=== PATIENT | male | born 2000 | race Two or more races ===

== ENCOUNTER 2023-04-17 01:14 | Emergency (ER) | payer MEDICAID, OTHER ==
[~2023-04-17] VITALS: Ht 167.6 cm; Wt 54.5 kg
[2023-04-17 01:58] LABS: Basophils # (auto) 0 10 ^3/uL (0-0.2); Basophils % (auto) 0.5 % (0.0-2.0); Eosinophils # (auto) 0 10 ^3/uL (0-0.8); Eosinophils % (auto) 0.2 % (0.0-7.0); Hematocrit 44.2 % (41.0-53.0); Hemoglobin 15.3 g/dL (13.5-17.5); Lymphocytes # (auto) 3.5 10 ^3/uL (0.4-5.4); Lymphocytes % (auto) 41.9 % (10.0-50.0); Mean Corpuscular Hemoglobin 32.8 pg (28.0-32.0); Mean Corpuscular Hgb Conc. 34.7 g/dL (32.0-36.0); Mean Corpuscular Volume 94.5 fL (80.0-100.0); Monocytes # (auto) 0.8 10 ^3/uL (0-1.3); Monocytes % (auto) 9.1 % (0.0-12.0); Neutrophils % (auto) 48.3 % (37.0-80.0); Nucleated Red Blood Cells % 0.1 %; Red Blood Cells 4.68 10^6/uL (4.5-5.90); Red Cell Distribution Width 13.8 % (11.8-14.3); White Blood Cell 8.4 10^3/uL (4.4-10.8)
[2023-04-17 02:14] LABS: INR 1.06 (0.9-1.15); Partial Thromboplastin Time 28.7 SEC (24.5-34.5); Prothrombin Time 11.1 sec (9.3-11.8)
[2023-04-17 02:19] LABS: Alanine Aminotransferase 23 U/L (7-40); Albumin 4.7 g/dL (3.2-4.8); Alkaline Phosphatase 52 U/L (46-116); Anion Gap 6 (5-15); Aspartate Aminotransferase 27 U/L (13-40); BUN/Creatinine Ratio 6.6 (10.0-20.0); Blood Urea Nitrogen 7 mg/dL (9-23); Calcium 9.4 mg/dL (8.7-10.4); Carbon Dioxide 28 mmol/L (20-30); Chloride 104 mmol/L (98-107); Glucose 94 mg/dL (74-106); Potassium 3.9 mmol/L (3.5-5.1); Sodium 138 mmol/L (136-145); Total Protein 7.3 g/dL (5.7-8.2)
[2023-04-17 03:46] LABS: Urine Bacteria NONE SEEN /hpf (None Seen); Urine Blood Negative /uL (Negative); Urine Clarity Clear (Clear); Urine Color Yellow (Yellow); Urine Mucus FEW (None Seen); Urine Protein, UAD Negative (Negative); Urine Urobilinogen Normal (Negative); Urine WBC 1 /hpf (0 - 3); Urine pH 6.5 (5.0-8.0)
[2023-04-17] MEDS: KETOROLAC TROMETH 60MG/2ML VIAL IM ONE (03:55)
[2023-04-17 03:58] VITALS: BP 107/73; PULSE 75; RESP 17; TEMP 98.1; O2SAT 99
[2023-04-17] MEDS ORDERED: ACET-1304 PO (04:39)
[2023-04-17] MEDS ORDERED: IBUP-1456 PO (04:39)
== END 2023-04-17 05:27 | disposition home or self-care (01) ==
LOC: ER 01:14
DX: K40.90 Unilateral inguinal hernia, without obstruction or gangrene, not specified as recurrent (principal); Z79.899 Other long term (current) drug therapy
CPT/HCPCS: 36415; 74176; 80053; 81001; 85025; 85610; 85730; 96372; 99285; J1885

== ENCOUNTER 2024-04-29 20:32 | Emergency (ER) | payer MEDICAID ==
[~2024-04-29] VITALS: Ht 167.6 cm; Wt 55.5 kg
[~2024-04-29 20:32] MED LIST: ACET-1304 PO; IBUP-1456 PO
--- NOTE | 2024-04-29 21:20 | ED.PDOC ---
GI ASSESSMENT HPI Comments 23y M who presents to the ED for chief complaint of abdominal pain. Pt states he has inguinal hernia on the RLQ for the past year. Patient states he has been I am able to follow up with his primary care provider for surgical intervention due to insurance purposes. Pt states he has been able to put it back into the abdominal cavity in the past but states today, he started to have increasing pain when attempting to place it back. Pt rates the pain 8/10, constant, non- radiating, with associated exacerbation of pain with movement and no relieving factors. Pt otherwise has noted stable vitals in the ED. Pt otherwise denies nausea, vomiting, diarrhea, fever, cough or chills. Pt denies any other symptoms at this time. Chief Complaint: Abdominal Pain Time Seen by MD: 21:17 Primary Care Provider: Juan Jose Palacios Reviewed Notes: Nurses Notes, Medications Allergies: Coded Allergies: NO KNOWN ALLERGIES (Unverified , 04/17/23) Home Meds Active Scripts Acetaminophen (Tylenol Extra Strength) 500 Mg Tab, 1000 MG PO Q6HP PRN, #30 TAB Prov:DILAN EL MD 04/17/23 Ibuprofen (Ibuprofen) 800 Mg Tab, 1 TAB PO Q8HP PRN, #30 TAB 1 Refill Prov:DILAN EL MD 04/17/23 Information Source: Patient Mode of Arrival: Ambulatory Brought in by: self Timing: Hours Prehospital treatment: Pain Meds Quality: Aching, Cramping Severity: Moderate Recent: Other (History of right-sided inguinal hernia) Recent Hx of: Other ( inguinal hernia) Pain Location: RLQ Past Medical History PAST MEDICAL HISTORY: Denies Past Medical History (Other): history of right-sided inguinal hernia Surgical History: Denies all surgeries Family History Family History: Unknown Social History Smoker: Non-Smoker Alcohol: Occasionally Drugs: Denies Drug Use Lives In: Home Constitutional: denies: chills, diaphoresis, fatigue, fever, malaise, sweats, weakness, others EENTM: denies: blurred vision, double vision, ear bleeding, ear discharge, ear drainage, ear pain, ear ringing, eye pain, eye redness, hearing loss, mouth pain, mouth swelling, nasal discharge, nose bleeding, nose congestion, nose pain, photophobia, tearing, throat pain, throat swelling, voice changes, others Respiratory: denies: cough, hemoptysis, orthopnea, SOB at rest, shortness of breath, SOB with excertion, stridor, wheezing, others Cardiovascular: denies: chest pain, dizzy spells, diaphoresis, Dyspnea on exertion, edema, irregular heart beat, left arm pain, lightheadedness, palpitations, PND, syncope, others Gastrointestinal: reports: abdominal pain; denies: abdomen distended, blood streaked bowels, constipated, diarrhea, dysphagia, difficulty swallowing, hematemesis, melena, nausea, poor appetite, poor fluid intake, rectal bleeding, rectal pain, vomiting, others Genitourinary: denies: burning, dysuria, flank pain, frequency, hematuria, incontinence, penile discharge, penile sore, pain, testicle pain, testicle swelling, urgency, others Neurological: denies: dizziness, fainting, headache, left sided numbness, left sided weakness, numbness, paresthesia, pre-existing deficit, right sided numbness, right sided weakness, seizure, speech problems, tingling, tremors, weakness, others Musculoskeletal: denies: back pain, gout, joint pain, joint swelling, muscle pain, muscle stiffness, neck pain, others Integumetry: denies: bruises, change in color, change in hair/nails, dryness, laceration, lesions, lumps, rash, wounds, others Allergic/Immunocompromised: denies: Difficulty Healing, Frequent Infections, Hives, Itching, others Hematologic/Lymphatic: denies: anemia, blood clots, easy bleeding, easy bruising, swollen glands, others Endocrine: denies: excessive hunger, excessive sweating, excessive thirst, excessive urination, flushing, intolerance to cold, intolerance to heat, unexplained weight gain, unexplained weight loss, others Psychiatric: denies: anxiety, bipolar disorder, depression, hopeless, panic disorder, schizophrenia, sleepless, suicidal, others All Other Systems: Reviewed and Negative Physical Exam General Appearance: Moderate Distress ( due to right-sided inguinal discomfort), Normal HEENT: Normal ENT Inspection, Pharynx Normal, TMs Normal Neck: Full Range of Motion, Non-Tender, Normal, Normal Inspection Respiratory: Chest Non-Tender, Lungs Clear, No Accessory Muscle Use, No Respi ratory Distress, Normal Breath Sounds Cardiovascular: No Edema, No JVD, No Murmur, No Gallop, Normal Peripheral Pulses, Regular Rate/Rhythm Breast Exam: Deferred Gastrointestinal: No Organomegaly, Non Tender, No Pulsatile Mass, Normal Bowel Sounds, Soft Genitalia: Deferred Pelvic: Other ( patient presents with a bulging right-sided inguinal hernia. Unable to reduce hernia at time of evaluation. No ecchymosis noted.) Rectal: Deferred Extremities: No calf tenderness, Normal capillary refill, Normal inspection, Normal range of motion, Non-tender, No pedal edema Neurologic: Alert, No Motor Deficits, Normal Affect, Normal Mood, No Sensory Deficits Cerebellar Function: Normal Reflexes: Normal Skin: Dry, Normal Color, Warm Lymphatic: No Adenopathy Was a procedure done? Was a procedure done?: No GI differential Dx Differential Diagnosis: Hernia, Other ( Incarcerated hernia, strangulated hernia) X-Ray, Labs, Meds, VS Vital Signs Date Time Temp Pulse Resp B/P (MAP) Pulse Ox O2 Delivery O2 Flow Rate FiO2 04/29/24 21:10 98.7 72 16 107/69 (82) 100 Current Medications Medications (Trade) Dose Ordered Sig/Jason Route Start Time Stop Time Status Last Admin Ketorolac Tromethamine (Toradol Injection) 30 mg ONCE ONCE IM 04/29/24 21:15 04/29/24 21:16 DC 04/29/24 22:45 Acetaminophen/ Hydrocodone Bitart (Davis 10/325MG Tab) 1 tab ONCE ONCE PO 04/29/24 21:15 04/29/24 21:16 DC 04/29/24 22:44 X-Ray, Labs, Meds, VS Comment All studies performed the ED were evaluated by me personally. Imaging studies of the right-sided inguinal hernia were unremarkable for any incarceration or strangulation. infectious waste technician advised me that while she was performing the ultrasound, the inguinal hernia reduced completely. Advised patient to utilize medication as needed and follow up with primary care provider for discussions related to surgical intervention to repair his right-sided inguinal hernia. Time of 1ST Reevaluation: 23:02 Reevaluation 1ST: Improved Consultation: PCP, Surgery Patient Education/Counseling: Diagnosis, Treatment Family Education/Counseling: Diagnosis, Treatment, No Family Present Departure 1 Departure Time of Disposition: 23:03 Impression: Primary Impression: Inguinal hernia of right side without obstruction or gangrene Disposition: HOME / SELF CARE / HOMELESS Condition: Stable Additional Instructions: Advised patient utilize pain medication as needed for symptomatic relief in additionally, patient needs to follow up with his primary care provider for conversations related to surgical intervention to repair his hernia concerns. e-Prescriptions Tramadol Hcl (Tramadol Hcl) 50 Mg Tab 50 MG PO Q8HP PRN, #10 TAB Prov: SHIKHA PENA PAC 04/29/24 Ibuprofen Micronized (Ibuprofen) 800 Mg Tab 800 MG PO Q8HP PRN, #20 TAB Prov: SHIKHA PENA PAC 04/29/24 Discharged With: Self, Friend Critical Care Note Critical Care Time?: No Stability Stability form required: No Heart Score Heart Score: Heart Score Response (Comments) Value History N/A 0 EKG N/A 0 Age N/A 0 Risk Factors N/A 0 Troponin N/A 0 Total 0 I personally scribed for SHIKHA PENA PAC ([email or web address]) on 04/29/24 at 21:20. Electronically submitted by Shai Gonzalez ([email or web address]). I personally scribed for SHIKHA PENA PAC ([email or web address]) on 04/29/24 at 21:30. Electronically submitted by Shai Gonzalez ([email or web address]). SHIKHA PENA PAC Apr 29, 2024 21:20
--- NOTE | 2024-04-29 22:13 | DVH ---
INDICATION: Right-sided inguinal hernia TECHNIQUE: Multiple real-time grayscale transabdominal sonographic images along with color and duplex Doppler of the uterus and ovaries were obtained. COMPARISON: None FINDINGS: There is a 4.2 x 2.6 x 4.7 cm right inguinal hernia which does not extend entirely through the inguin al canal. This does correspond to a palpable lump. Subsequent color and duplex Doppler interrogation of the ovaries demonstrated symmetric vascular flow to both ovaries, though this does not exclude the possibility of torsion due to the dual blood suppl y. IMPRESSION: 1. 4.2 x 2.6 x 4.7 cm right inguinal hernia
[2024-04-29] MEDS: HYDROcodone-ACET 10/325MG TAB PO ONE (22:44)
[2024-04-29] MEDS: KETOROLAC TROMETH 60MG/2ML VIAL IM ONE (22:45)
[2024-04-29] MEDS ORDERED: IBUP-1455 PO (23:04)
[2024-04-29] MEDS ORDERED: TRAM50TA2 PO (23:04)
[2024-04-29 23:32] VITALS: BP 116/76; PULSE 65; RESP 16; TEMP 97.9; O2SAT 99
== END 2024-04-29 23:37 | disposition home or self-care (01) ==
LOC: ER 20:32
DX: K40.90 Unilateral inguinal hernia, without obstruction or gangrene, not specified as recurrent (principal); Z79.899 Other long term (current) drug therapy
CPT/HCPCS: 76856; 96372; 99285; J1885

== ENCOUNTER 2024-05-18 19:17 | Emergency (ER) | payer MEDICAID ==
[~2024-05-18] VITALS: Ht 167.6 cm; Wt 55.9 kg
[~2024-05-18 19:17] MED LIST changes: +IBUP-1455 PO; +TRAM50TA2 PO
--- NOTE | 2024-05-18 19:32 | ED.PDOC ---
GI ASSESSMENT HPI Comments 23-year-old male came to ER for abdominal pain. Patient recently diagnosed a right indirect inguinal hernia last month, he is on pain medications, has yet to see a surgeon regarding this issue. As of 11:00 a.m. today, patient started complaining of right inguinal pain with bulging of the right testicle. Denies any nausea or vomiting or urinary symptoms. Chief Complaint: Abdominal pain Time Seen by MD: 19:31 Primary Care Provider: UNKNOWN Reviewed Notes: Nurses Notes Allergies: Coded Allergies: NO KNOWN ALLERGIES (Unverified , 04/17/23) Home Meds Active Scripts Tramadol Hcl (Tramadol Hcl) 50 Mg Tab, 50 MG PO Q8HP PRN, #10 TAB Prov:SHIKHA PENA PAC 04/29/24 Ibuprofen Micronized (Ibuprofen) 800 Mg Tab, 800 MG PO Q8HP PRN, #20 TAB Prov:HSIKHA PENA PAC 04/29/24 Acetaminophen (Tylenol Extra Strength) 500 Mg Tab, 1000 MG PO Q6HP PRN, #30 TAB Prov:DILAN EL MD 04/17/23 Ibuprofen (Ibuprofen) 800 Mg Tab, 1 TAB PO Q8HP PRN, #30 TAB 1 Refill Prov:DILAN EL MD 04/17/23 Information Source: Patient Mode of Arrival: Ambulatory Timing: Hours Duration: Since onset Quality: Aching Vomitus: None Stool: Normal Severity: Moderate Recent: None Recent Hx of: Other (Right indirect inguinal hernia) Pain Location: Other (Right inguinal) Associated sign and symptoms: Abdominal Pain (Right inguinal) Past Medical History Past Medical History (Other): Right indirect inguinal hernia Surgical History: Denies all surgeries Family History Family History: Reviewed,noncontributory to illness Social History Smoker: Non-Smoker Alcohol: Occasionally Drugs: Denies Drug Use Lives In: Home Constitutional: denies: chills, diaphoresis, fatigue, fever, malaise, sweats, weakness, others EENTM: denies: blurred vision, double vision, ear bleeding, ear discharge, ear drainage, ear pain, ear ringing, eye pain, eye redness, hearing loss, mouth pain, mouth swelling, nasal discharge, nose bleeding, nose congestion, nose pain, photophobia, tearing, throat pain, throat swelling, voice changes, others Respiratory: denies: cough, hemoptysis, orthopnea, SOB at rest, shortness of breath, SOB with excertion, stridor, wheezing, others Cardiovascular: denies: chest pain, dizzy spells, diaphoresis, Dyspnea on exertion, edema, irregular heart beat, left arm pain, lightheadedness, palpitations, PND, syncope, others Gastrointestinal: reports: abdominal pain; denies: abdomen distended, blood streaked bowels, constipated, diarrhea, dysphagia, difficulty swallowing, hematemesis, melena, nausea, poor appetite, poor fluid intake, rectal bleeding, rectal pain, vomiting, others Genitourinary: reports: testicle pain (right), testicle swelling (right); denies: burning, dysuria, flank pain, frequency, hematuria, incontinence, penile discharge, penile sore, pain, urgency, others Neurological: denies: dizziness, fainting, headache, left sided numbness, left sided weakness, numbness, paresthesia, pre-existing deficit, right sided numbness, right sided weakness, seizure, speech problems, tingling, tremors, w eakness, others Musculoskeletal: denies: back pain, gout, joint pain, joint swelling, muscle pain, muscle stiffness, neck pain, others Integumetry: denies: bruises, change in color, change in hair/nails, dryness, laceration, lesions, lumps, rash, wounds, others Allergic/Immunocompromised: denies: Difficulty Healing, Frequent Infections, Hives, Itching, others Hematologic/Lymphatic: denies: anemia, blood clots, easy bleeding, easy bruising, swollen glands, others Endocrine: denies: excessive hunger, excessive sweating, excessive thirst, excessive urination, flushing, intolerance to cold, intolerance to heat, unexplained weight gain, unexplained weight loss, others Psychiatric: denies: anxiety, bipolar disorder, depression, hopeless, panic disorder, schizophrenia, sleepless, suicidal, others Physical Exam General Appearance: No Apparent Distress, Normal HEENT: Normal ENT Inspection, Pharynx Normal, TMs Normal Neck: Full Range of Motion, Non-Tender, Normal, Normal Inspection Respiratory: Chest Non-Tender, Lungs Clear, No Accessory Muscle Use, No Respiratory Distress, Normal Breath Sounds Cardiovascular: No Edema, No JVD, No Murmur, No Gallop, Normal Peripheral Pulses, Regular Rate/Rhythm Breast Exam: Deferred Gastrointestinal: Hernia (right indirect inguinal), No Organomegaly, No Pulsatile Mass, Normal Bowel Sounds, Soft Genitalia: Deferred Pelvic: Deferred Rectal: Deferred Extremities: No calf tenderness, Normal capillary refill, Normal inspection, Normal range of motion, Non-tender, No pedal edema Musculoskeletal : Apperance: Normal Neurologic: Alert, cement paver II-XII nml as Tested, No Motor Deficits, Normal Affect, Normal Mood, No Sensory Deficits Cerebellar Function: Normal Reflexes: Normal Skin: Dry, Normal Color, Warm Lymphatic: No Adenopathy Was a procedure done? Was a procedure done?: No GI differential Dx Differential Diagnosis: Diverticular disease, Hernia X-Ray, Labs, Meds, VS Vital Signs Date Time Temp Pulse Resp B/P (MAP) Pulse Ox O2 Delivery O2 Flow Rate FiO2 05/18/24 19:25 98.0 81 18 109/70 (83) 96 98.0 Time of 1ST Reevaluation: 19:27 Reevaluation 1ST: Unchanged Patient Education/Counseling: Diagnosis, Treatment Family Education/Counseling: No Family Present Departure 1 Departure Time of Disposition: 20:41 (Patient went benign exam and presented here for a work note. We will discharge patient with outpatient follow up) Impression: Primary Impression: Inguinal hernia of right side without obstruction or gangrene Disposition: 01 HOME / SELF CARE / HOMELESS Condition: Stable Additional Instructions: Please continue to take your regular medications and follow up with her regular appointments. Discharged With: Self Critical Care Note Critical Care Time?: No Stability Stability form required: No Heart Score Heart Score: Heart Score Response (Comments) Value History N/A 0 EKG N/A 0 Age N/A 0 Risk Factors N/A 0 Troponin N/A 0 Total 0 I personally scribed for MEKHI CASTRO MD ([email or web address]) on 05/18/24 at 19:32. Electronically submitted by Zhao Roberts ([email or web address]). MEKHI CASTRO MD May 18, 2024 19:32
[2024-05-18 21:00] VITALS: BP 111/76; PULSE 77; RESP 16; TEMP 97.8; O2SAT 98
== END 2024-05-18 21:20 | disposition home or self-care (01) ==
LOC: ER 19:17
DX: K40.90 Unilateral inguinal hernia, without obstruction or gangrene, not specified as recurrent (principal); Z79.899 Other long term (current) drug therapy

== ENCOUNTER 2024-06-10 12:39 | Emergency (ER) | payer MEDICAID ==
[~2024-06-10] VITALS: Ht 167.6 cm; Wt 53.9 kg
[2024-06-10 13:32] LABS: Basophils # (auto) 0 10 ^3/uL (0-0.2); Basophils % (auto) 0.6 % (0.0-2.0); Eosinophils # (auto) 0 10 ^3/uL (0-0.8); Lymphocytes # (auto) 1.3 10 ^3/uL (0.4-5.4); Lymphocytes % (auto) 20.1 % (10.0-50.0); Mean Corpuscular Hemoglobin 33.1 pg (28.0-32.0); Mean Corpuscular Hgb Conc. 34.7 g/dL (32.0-36.0); Mean Corpuscular Volume 95.3 fL (80.0-100.0); Monocytes # (auto) 0.7 10 ^3/uL (0-1.3); Monocytes % (auto) 10.9 % (0.0-12.0); Neutrophils # (auto) 4.6 10 ^3/uL (1.6-8.6); Neutrophils % (auto) 68.4 % (37.0-80.0); Nucleated Red Blood Cells % 0.6 %; Platelet Count (auto) 221 10^3/uL (140-450); Red Blood Cells 5.14 10^6/uL (4.5-5.90); Red Cell Distribution Width 13.1 % (11.8-14.3); White Blood Cell 6.7 10^3/uL (4.4-10.8)
[2024-06-10 13:42] LABS: Cannabinoid Screen, Urine Pos (NEGATIVE)
[2024-06-10 13:43] LABS: Amphetamine Screen, Urine Neg (NEGATIVE); Barbiturate Scree,Urine Neg (NEGATIVE); Benzodiazephine Screen, Urine Neg (NEGATIVE); Cocaine Screen, Urine Neg (NEGATIVE); Opiate Scree,Urine Neg (NEGATIVE); Phencyclidine Screen, Urine Neg (NEGATIVE)
--- NOTE | 2024-06-10 13:48 | ED.PDOC ---
GI ASSESSMENT HPI Comments 23 y/o M, presents to the ED for CC of abdominal pain. Patient states, he has been experiencing RLQ abdominal pain x2days due to a right sided inguinal hernia [id number]. Patient reports, increased swelling and pain in the last two days. Patient relays, associated symptoms of constipation and urinary frequency caused decreased bladder control. Patient relays similar symptoms in past for which he received pain medication. Patient denies dysuria, hematuria, back pain, nausea, or vomiting. No other associated symptoms, modifiers, recent injuries or sick contacts present at this time. Chief Complaint: Abdominal Pain Time Seen by MD: 13:30 Primary Care Provider: CLAUDIA Reviewed Notes: Nurses Notes, Medications, Allergies Allergies: Coded Allergies: NO KNOWN ALLERGIES (Unverified , 04/17/23) Home Meds Active Scripts Tramadol Hcl (Tramadol Hcl) 50 Mg Tab, 50 MG PO Q8HP PRN, #10 TAB Prov:SHIKHA PENA PAC 04/29/24 Ibuprofen Micronized (Ibuprofen) 800 Mg Tab, 800 MG PO Q8HP PRN, #20 TAB Prov:SHIKHA PENA PAC 25 Acetaminophen (Tylenol Extra Strength) 500 Mg Tab, 1000 MG PO Q6HP PRN, #30 TAB Prov:DILAN EL MD 04/17/23 Ibuprofen (Ibuprofen) 800 Mg Tab, 1 TAB PO Q8HP PRN, #30 TAB 1 Refill Prov:DILAN EL MD 04/17/23 Information Source: Patient Mode of Arrival: Ambulatory Timing: Days Duration: Since onset Prehospital treatment: None Quality: None Vomitus: None Stool: Normal Severity: Moderate Recent: None Recent Hx of: None Pain Location: RLQ Modifying Factors: Nothing Associated sign and symptoms: Constipation Past Medical History PAST MEDICAL HISTORY: Denies Surgical History: Denies all surgeries Family History Family History: Reviewed,noncontributory to illness, Unknown Social History Smoker: Non-Smoker Alcohol: Occasionally Drugs: Denies Drug Use Lives In: Home Constitutional: denies: chills, diaphoresis, fatigue, fever, malaise, sweats, weakness, others EENTM: denies: blurred vision, double vision, ear bleeding, ear discharge, ear drainage, ear pain, ear ringing, eye pain, eye redness, hearing loss, mouth pain, mouth swelling, nasal discharge, nose bleeding, nose congestion, nose pain, photophobia, tearing, throat pain, throat swelling, voice changes, others Respiratory: denies: cough, hemoptysis, orthopnea, SOB at rest, shortness of breath, SOB with excertion, stridor, wheezing, others Cardiovascular: denies: chest pain, dizzy spells, diaphoresis, Dyspnea on exertion, edema, irregular heart beat, left arm pain, lightheadedness, palpitations, PND, syncope, others Gastrointestinal: reports: abdominal pain, constipated; denies: abdomen distended, blood streaked bowels, diarrhea, dysphagia, difficulty swallowing, he matemesis, melena, nausea, poor appetite, poor fluid intake, rectal bleeding, rectal pain, vomiting, others Genitourinary: reports: frequency; denies: burning, dysuria, flank pain, hematuria, incontinence, penile discharge, penile sore, pain, testicle pain, testicle swelling, urgency, others Neurological: denies: dizziness, fainting, headache, left sided numbness, left sided weakness, numbness, paresthesia, pre-existing deficit, right sided nu mbness, right sided weakness, seizure, speech problems, tingling, tremors, weakness, others Musculoskeletal: denies: back pain, gout, joint pain, joint swelling, muscle pain, muscle stiffness, neck pain, others Integumetry: denies: bruises, change in color, change in hair/nails, dryness, laceration, lesions, lumps, rash, wounds, others Allergic/Immunocompromised: denies: Difficulty Healing, Frequent Infections, Hives, Itching, others Hematologic/Lymphatic: denies: anemia, blood clots, easy bleeding, easy bruising, swollen glands, others Endocrine: denies: excessive hunger, excessive sweating, excessive thirst, excessive urination, flushing, intolerance to cold, intolerance to heat, unexplained weight gain, unexplained weight loss, others Psychiatric: denies: anxiety, bipolar disorder, depression, hopeless, panic disorder, schizophrenia, sleepless, suicidal, others All Other Systems: Reviewed and Negative Physical Exam General Appearance: Moderate Distress HEENT: Normal ENT Inspection, Pharynx Normal, TMs Normal Neck: Full Range of Motion, Non-Tender, Normal, Normal Inspection Respiratory: Chest Non-Tender, Lungs Clear, No Accessory Muscle Use, No Respiratory Distress, Normal Breath Sounds Cardiovascular: No Edema, No JVD, No Murmur, No Gallop, Normal Peripheral Pulses, Regular Rate/Rhythm Breast Exam: Deferred Gastrointestinal: No Organomegaly, Non Tender, No Pulsatile Mass, Normal Bowel Sounds, Soft Genitalia: Deferred Pelvic: Deferred Rectal: Deferred Extremities: No calf tenderness, Normal capillary refill, Normal inspection, Normal range of motion, Non-tender, No pedal edema Musculoskeletal : Apperance: Normal Neurologic: Alert, 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 Was a procedure done?: No GI differential Dx Differential Diagnosis: Constipation, Diverticular disease, Esophagitis, Gastritis/PUD, Gastroenteritis, Hernia X-Ray, Labs, Meds, VS Vital Signs Date Time Temp Pulse Resp B/P (MAP) Pulse Ox O2 Delivery O2 Flow Rate FiO2 06/10/24 13:00 98.9 83 16 130/80 (97) 98 98.9 Lab Test 06/10/24 13:11 06/10/24 13:00 Range/Units White Blood Count 6.7 4.4-10.8 10^3/uL Red Blood Count 5.14 4.5-5.90 10^6/uL Hemoglobin 17.0 13.5-17.5 g/dL Hematocrit 49.0 41.0-53.0 % Mean Corpuscular Volume 95.3 80.0-100.0 fL Mean Corpuscular Hemoglobin 33.1 H 28.0-32.0 pg Mean Corpuscular Hemoglobin Concent 34.7 32.0-36.0 g/dL Red Cell Distribution Width 13.1 11.8-14.3 % Platelet Count 221 140-450 10^3/uL Mean Platelet Volume 8.8 6.9-10.8 fL Neutrophils (%) (Auto) 68.4 37.0-80.0 % Lymphocytes (%) (Auto) 20.1 10.0-50.0 % Monocytes (%) (Auto) 10.9 0.0-12.0 % Eosinophils (%) (Auto) 0.0 0.0-7.0 % Basophils (%) (Auto) 0.6 0.0-2.0 % Neutrophils # (Auto) 4.6 1.6-8.6 10 ^3/uL Lymphocytes # (Auto) 1.3 0.4-5.4 10 ^3/uL Monocytes # (Auto) 0.7 0-1.3 10 ^3/uL Eosinophils # (Auto) 0 0-0.8 10 ^3/uL Basophils # (Auto) 0 0-0.2 10 ^3/uL Nucleated Red Blood Cells 0.6 % Urine Opiates Screen Neg NEGATIVE Urine Fentanyl Screen Neg NEGATIVE Urine Barbiturates Screen Neg NEGATIVE Urine Phencyclidine Screen Neg NEGATIVE Urine Amphetamines Screen Neg NEGATIVE Urine Benzodiazepines Screen Neg NEGATIVE Urine Cocaine Screen Neg NEGATIVE Urine Cannabinoids Screen Pos NEGATIVE [place] [id number] Ph: [phone] DIAGNOSTIC IMAGING Diagnostic Imaging Report : [id number] Signed PATIENT: [facility]AS[facility]FORMERLY [id number] UNIT: [id number] : 2000 LOC: ER ROOM / BED: / AGE / SEX: 23 / M ADM STATUS: REG ER SERVICE [id number] ORDERING PHYSICIAN: NAYAN TAY MD PROCEDURE(s): ABPL - CT AB PEL WO CON-NO ORAL OR IV REASON: hernia ORDER NUMBER(s): [id number], ACCESSION NUMBER(s): [id number] Exam: CT CT AB PEL WO CON-NO ORAL OR IV History: hernia Comparison Study: 04/17/2023 TECHNIQUE: Multidetector CT of the abdomen and pelvis without IV contrast. Axial, coronal and sagittal multiplanar reformats were obtained from the axial data set by the technologist. Radiation Dose Information: CT Dose: CTDI volume is 6.03 mGy. Dose-length product is 333.73 mGy*cm FINDINGS: The lung bases are clear. Partially visualized heart is unremarkable. Liver, spleen, gallbladder, pancreas and adrenal glands unremarkable. Kidneys and ureters unremarkable. Mild wall thickening of the urinary bladder which may be from inadequate distention. Prostate is unremarkable. Mild gastric wall thickening which may be from inadequate distension. Small bowel loops unremarkable. Appendix is not definitely visualized. Without visualization of the appendix, can not exclude acute appendicitis. Large bowel is unremarkable. No evidence of intraperitoneal free air. Trace amount of free fluid within the pelvis. The left testicle appears to be within the distal inguinal canal. There is moderate size fat containing right inguinal hernia. The right testicle is not de finitely visualized. No evidence of aortic aneurysm. Significant lymphadenopathy. The soft tissues are unremarkable. No destructive osseous lesions are noted.. IMPRESSION: Moderate size fat containing right inguinal hernia. Mild wall thickening of the urinary bladder which may be due to inadequate distention. Correlation with urinalysis is recommended to exclude cystitis. Trace amount of free fluid within the pelvis. ATED BY: CYN LARSON DO DICTATED DATE/TIME: 06/10/24 142 SIGNED BY: CYN LARSON DO SIGNED DATE/TIME: 06/10/24 142 CC: Patient alert. Complaining of suprapubic discomfort. History of inguinal hernia. Vitals stable. CT scan of the abdomen reviewed does show fat containing inguinal hernia. WBC within normal limits. Hemoglobin within normal limits. Explained to the patient. Was told to follow up with his primary care physician. Was told to come back is any problem. Time of 1ST Reevaluation: 14:00 Reevaluation 1ST: Unchanged Patient Education/Counseling: Diagnosis, Treatment Family Education/Counseling: No Family Present Departure 1 Departure Time of Disposition: 14:43 Impression: Primary Impression: Inguinal hernia of right side without obstruction or gangrene Disposition: 01 HOME / SELF CARE / HOMELESS Condition: Good Discharged With: Self Critical Care Note Critical Care Time?: No Stability Stability form required: No Heart Score Heart Score: Heart Score Response (Comments) Value History N/A 0 EKG N/A 0 Age N/A 0 Risk Factors N/A 0 Troponin N/A 0 Total 0 I personally scribed for NAYAN TAY MD ([email or web address]) on 06/10/24 at 13:48. Electronically submitted by Basia Barraza ([email or web address]). I personally scribed for NAYAN TAY MD ([email or web address]) on 06/10/24 at 14:40. Electronically submitted by Basia Barraza ([email or web address]). NAYAN TAY MD Jun 10, 2024 13:48
--- NOTE | 2024-06-10 14:26 | DVH ---
Exam: CT CT AB PEL WO CON-NO ORAL OR IV History: hernia Comparison Study: 04/17/2023 TECHNIQUE: Multidetector CT of the abdomen and pelvis without IV contrast. Axial, coronal and sagitta l multiplanar reformats were obtained from the axial data set by the technologist. Radiation Dose Information: CT Dose: CTDI volume is 6.03 mGy. Dose-length product is 333.73 mGy*cm FINDINGS: The lung bases are clear. Partially visualized heart is unremarkable. Liver, spleen, gallbladder, pancreas and adrenal glands unremarkable. Kidneys and ureters unremarkable. Mild wall thickening of the urinary bladder which may be from inade quate distention. Prostate is unremarkable. Mild gastric wall thickening which may be from inadequate distension. Small bowel loops unremarkable . Appendix is not definitely visualized. Without visualization of the appendix, can not exclude acute appendicitis. Large bowel is unremarkable. No evidence of intraperitoneal free air. Trace amount of free fluid within the pelvis. The left testicle appears to be within the distal inguinal canal. There is moderate size fat containi ng right inguinal hernia. The right testicle is not definitely visualized. No evidence of aortic aneurysm. Significant lymphadenopathy. The soft tissues are unremarkable. No destructive osseous lesions are noted.. IMPRESSION: Moderate size fat containing right inguinal hernia. Mild wall thickening of the urinary bladder which may be due to inadequate distention. Correlation w ith urinalysis is recommended to exclude cystitis. Trace amount of free fluid within the pelvis.
[2024-06-10 15:50] VITALS: BP 121/85; PULSE 73; RESP 18; TEMP 98.2; O2SAT 99
== END 2024-06-10 16:15 | disposition home or self-care (01) ==
LOC: ER 12:39
DX: K40.90 Unilateral inguinal hernia, without obstruction or gangrene, not specified as recurrent (principal); K59.00 Constipation, unspecified; Z79.899 Other long term (current) drug therapy
CPT/HCPCS: 36415; 74176; 80307; 85025